=== PATIENT | female | born 2000 | race Caucasian/White ===

== ENCOUNTER 2021-07-01 17:19 | Emergency (ER) ==
[~2021-07-01] VITALS: Ht 165.1 cm; Wt 88.5 kg
[2021-07-01 21:08] VITALS: BP 127/77
== END 2021-07-01 21:33 | disposition left against medical advice (07) ==
LOC: M ED 17:19
DX: Z53.21 Procedure and treatment not carried out due to patient leaving prior to being seen by health care provider (principal)

== ENCOUNTER 2021-10-21 11:16 | Emergency (ER) | payer OTHER ==
[~2021-10-21] VITALS: Ht 165.1 cm; Wt 84.5 kg
[2021-10-21 16:47] LABS: BASO % 0.3 % (0.0-1.0); EOS % 0.3 % (0.0-3.0); HEMATOCRIT 37.9 % (36.0-47.0); HEMOGLOBIN 12.6 g/dl (12.0-15.5); LYMPH # 1.9 10^3/uL (1.5-5.0); LYMPH % 15.7 % (24.0-44.0); MEAN CORPUSCULAR HEMOGLOBIN 30.7 pg (27.0-33.0); MEAN CORPUSCULAR HGB CONC 33.2 g/dl (32.0-36.5); MEAN CORPUSCULAR VOLUME 92.2 fl (80.0-96.0); MONO # 0.7 10^3/uL (0.0-0.8); MONO % 5.9 % (2.0-8.0); NEUTROPHILS # 9.1 10^3/uL (1.5-8.5); NEUTROPHILS % 76.5 % (36.0-66.0); PLATELET COUNT, AUTOMATED 119 10^3/uL (150-450); RED BLOOD COUNT 4.11 10^6/uL (4.00-5.40); WHITE BLOOD COUNT 11.9 10^3/uL (4.0-10.0)
[2021-10-21 16:53] LABS: FREE T4 0.88 NG/DL (0.78-1.33); THYROID STIMULATING HORMONE 0.956 uIU/ML (0.463-3.98)
[2021-10-21 16:57] LABS: CK-MB VALUE MASS < 1.0 NG/ML (<3.6); CPK CREATINE PHOSPHOKINASE 53 U/L (26-192); MB/CK RELATIVE INDEX 1.89 (< OR =4)
[2021-10-21 17:45] VITALS: BP 132/68
== END 2021-10-21 17:50 | disposition home or self-care (01) ==
LOC: M ED 11:16
DX: R55 Syncope and collapse (principal); Z3A.19 19 weeks gestation of pregnancy; Z88.1 Allergy status to other antibiotic agents

== ENCOUNTER → 2021-12-07 | Outpatient (CLI) | payer OTHER | LOC: M PLALAB 07:58 | PROVIDERS: ATTEND Obstetrics & Gynecology | DX: Z36.2 Encounter for other antenatal screening follow-up (principal); Z3A.26 26 weeks gestation of pregnancy ==

== ENCOUNTER → 2021-12-08 | Outpatient (CLI) | payer OTHER | LOC: M LAB 15:27 | PROVIDERS: ATTEND Internal Medicine Cardiovascular Disease | DX: R23.2 Flushing (principal); R06.02 Shortness of breath ==

== ENCOUNTER → 2021-12-08 | Outpatient (CLI) | payer OTHER | LOC: M CARPUL 14:16 | PROVIDERS: ATTEND Internal Medicine Cardiovascular Disease | DX: R55 Syncope and collapse (principal); Z36.2 Encounter for other antenatal screening follow-up; Z3A.26 26 weeks gestation of pregnancy ==

== ENCOUNTER 2022-01-03 12:46 | Outpatient (CLI) | payer OTHER ==
[~2022-01-03] VITALS: Ht 165.1 cm; Wt 90.8 kg
[2022-01-03] MEDS ORDERED: PRENTAB9 PO (12:56)
[2022-01-03 13:04] VITALS: BP 125/72
[2022-01-03] MEDS ORDERED: HOME MED LIST COMPLETE! XX SCH (13:10)
[2022-01-03 14:26] LABS: APPEARANCE, URINE MANUAL HAZY (CLEAR); BILIRUBIN, URINE MANUAL NEGATIVE (NEGATIVE); BLOOD URINE MANUAL NEGATIVE (NEGATIVE); COLOR, URINE MANUAL YELLOW (YELLOW); GLUCOSE, URINE (UA) MANUAL NEGATIVE (NEGATIVE); KETONE, URINE MANUAL NEGATIVE (NEGATIVE); LEUKOCYTE ESTERASE, URINE MAN POSITIVE (NEGATIVE); NITRITE, URINE MANUAL NEGATIVE (NEGATIVE); PROTEIN, URINE MANUAL NEGATIVE (NEGATIVE); UROBILINOGEN, URINE MANUAL NORMAL (NORMAL)
[2022-01-03 14:42] LABS: RBC, URINE 0-1 /hpf (0-3); WBC, URINE 15-20 /hpf (0-3)
[2022-01-03 14:43] LABS: BACTERIA, URINE MOD AMOUNT; HYALINE CAST, URINE NONE SEEN /lpf (0-1); MUCUS, URINE MOD AMOUNT (NEGATIVE); SQUAMOUS EPITHELIAL CELL URINE LARGE AMOUNT /hpf (SMALL AMT)
== END 2022-01-03 14:46 | disposition home or self-care (01) ==
LOC: M LDO 12:46
PROVIDERS: ATTEND Advanced Practice Midwife
DX: O26.853 Spotting complicating pregnancy, third trimester (principal); O26.893 Other specified pregnancy related conditions, third trimester; R10.30 Lower abdominal pain, unspecified; Z3A.29 29 weeks gestation of pregnancy
CPT/HCPCS: 59025; 81000; 87086; G0463

== ENCOUNTER → 2022-02-02 | Outpatient (CLI) | payer OTHER ==
[~2022-02-02] MED LIST: PRENTAB9 PO
[2022-02-02 18:50] LABS: HEMATOCRIT 34.3 % (36.0-47.0); HEMOGLOBIN 11.2 g/dl (12.0-15.5); MEAN CORPUSCULAR HEMOGLOBIN 30.4 pg (27.0-33.0); MEAN CORPUSCULAR HGB CONC 32.7 g/dl (32.0-36.5); PLATELET COUNT, AUTOMATED 118 10^3/uL (150-450); RED BLOOD COUNT 3.69 10^6/uL (4.00-5.40); WHITE BLOOD COUNT 12.4 10^3/uL (4.0-10.0)
[2022-02-02 20:35] LABS: HEPATITIS C VIRUS ABY INDEX < 0.0 INDEX (<0.8); HIV 1&2 SCREEN CENTAUR NEGATIVE (NEGATIVE)
[2022-02-03 10:47] LABS: GC DNA AMPLIFICATION NEGATIVE (NEGATIVE)
== END ==
LOC: M PLALAB 15:42
PROVIDERS: ATTEND Obstetrics & Gynecology
DX: Z34.02 Encounter for supervision of normal first pregnancy, second trimester (principal)

== ENCOUNTER → 2022-02-17 | Outpatient (REF) | payer OTHER | LOC: M SFHCWAGY 09:43 | PROVIDERS: ATTEND Obstetrics & Gynecology | DX: Z36.89 Encounter for other specified antenatal screening (principal); Z3A.36 36 weeks gestation of pregnancy ==

== ENCOUNTER → 2022-02-23 | Outpatient (CLI) | payer OTHER ==
[2022-02-23 10:40] LABS: HEMATOCRIT 37.6 % (36.0-47.0); HEMOGLOBIN 12.2 g/dl (12.0-15.5); MEAN CORPUSCULAR HEMOGLOBIN 29.7 pg (27.0-33.0); MEAN CORPUSCULAR HGB CONC 32.4 g/dl (32.0-36.5); MEAN CORPUSCULAR VOLUME 91.5 fl (80.0-96.0); PLATELET COUNT, AUTOMATED 125 10^3/uL (150-450); RED BLOOD COUNT 4.11 10^6/uL (4.00-5.40); WHITE BLOOD COUNT 11.2 10^3/uL (4.0-10.0)
== END ==
LOC: M PLALAB 08:33
PROVIDERS: ATTEND Obstetrics & Gynecology
DX: D69.6 Thrombocytopenia, unspecified (principal)

== ENCOUNTER 2022-03-19 19:54 | Inpatient (IN) | payer OTHER ==
[~2022-03-19] VITALS: Ht 165.1 cm; Wt 96.5 kg
[2022-03-19] VITALS (10 sets, daily range): BP systolic 102–145; BP diastolic 64–109
[2022-03-19] MEDS ORDERED: HOME MED LIST COMPLETE! XX SCH (20:15)
[2022-03-19] MEDS ORDERED: CARBOPROST TROMETHAMINE 250 MCG/ML AMP IM PRN (21:20)
[2022-03-19] MEDS ORDERED: OXYTOCIN DRIP 30 UNITS in IV 1 EA IV PRN (21:20)
[2022-03-19] MEDS ORDERED: TRANEXAMIC ACID INJection 1,000 MG in NS 100 ML IV PRN (21:20)
[2022-03-19] MEDS ORDERED: LIDOCAINE 1% MDV 20ML VIAL INFIL PRN (21:20)
[2022-03-19 21:56] LABS: HEMATOCRIT 38.6 % (36.0-47.0); HEMOGLOBIN 12.5 g/dl (12.0-15.5); MEAN CORPUSCULAR HEMOGLOBIN 29.1 pg (27.0-33.0); MEAN CORPUSCULAR HGB CONC 32.4 g/dl (32.0-36.5); MEAN CORPUSCULAR VOLUME 89.8 fl (80.0-96.0); PLATELET COUNT, AUTOMATED 155 10^3/uL (150-450); WHITE BLOOD COUNT 13.1 10^3/uL (4.0-10.0)
[2022-03-19 22:34] LABS: CREATININE,RANDOM URINE 60.9 MG/DL; TOTAL PROTEIN,RANDOM URINE 5.2 MG/DL (0.0-12.0)
[2022-03-19] MEDS: miSOPROStol 50MCG 1/2 TABLET PO SCH (22:46)
[2022-03-20] VITALS (20 sets, daily range): BP systolic 114–154; BP diastolic 57–93
[2022-03-20] MEDS: miSOPROStol 50MCG 1/2 TABLET PO SCH ×3 (03:00→12:38)
[2022-03-20 05:59] LABS: ALT/SGPT 10 U/L (12-78); BILIRUBIN,TOTAL 0.4 MG/DL (0.2-1.0); CREATININE FOR GFR 0.55 MG/DL (0.55-1.30); LDH LACTATE DEHYDROGENASE 167 U/L (84-246); URIC ACID 3.5 MG/DL (2.6-6.0)
[2022-03-20] MEDS ORDERED: PROMETHAZINE 25MG/ML 1ML VIAL IV ONE (13:00)
[2022-03-20] MEDS ORDERED: BUTORPHANOL 2 MG/ML INJ (J0595) IV ONE (13:00)
[2022-03-20] MEDS ORDERED: OXYTOCIN DRIP 30 UNITS in IV 1 EA IV SCH (16:30)
[2022-03-20] MEDS: LR 1,000 ML IV SCH ×2 (16:56→17:48)
[2022-03-20] MEDS ORDERED: FENTANYL 2MCG/ML ROPIVACAINE 0.2% IN 0.9% NACL 100ML IVBAG As Ordered ONE (17:29)
[2022-03-20] MEDS ORDERED: diphenhydrAMINE 50MG/ML VIAL (J1200) IV PRN (17:30)
[2022-03-20] MEDS ORDERED: ePHEDrine SULFATE 25 MG/5 ML(5MG/ML) SYRINGE IVP PRN (17:30)
[2022-03-20] MEDS ORDERED: LR 500 ML IV PRN (17:30)
[2022-03-20] MEDS ORDERED: ONDANSETRON 4MG 2ML VIAL IV PRN (17:30)
[2022-03-20] MEDS ORDERED: FENTANYL/ROPIVACAINE/NACL BAG 100 ML EPIDURAL SCH (17:30)
[2022-03-20] MEDS ORDERED: NALOXONE INJ 0.4MG/1ML VIAL (J2310 PER 1MG) IV PRN (17:30)
[2022-03-20] MEDS ORDERED: EPIDURAL/PCA KEYS XX PRN (17:30)
[2022-03-21] MEDS ORDERED: ACETAMINOPHEN TAB 650MG DOSE (2X325MG) PO PRN (03:50)
[2022-03-21] MEDS ORDERED: DOCUSATE SODIUM 100MG CAPSULE PO PRN (03:50)
[2022-03-21] MEDS ORDERED: MOM 30ML SUSPENSION UDC PO PRN (03:50)
[2022-03-21] MEDS ORDERED: DIBUCAINE 1% OINTMENT 30GM TOP PRN (03:50)
[2022-03-21] MEDS ORDERED: RHOGAM 300 MCG (1500 IU) INJ (J2790) IM SCH (03:50)
[2022-03-21] MEDS ORDERED: OXYTOCIN DRIP 30 UNITS in IV 1 EA IV SCH (03:50)
[2022-03-21] MEDS ORDERED: METHYLERGONOVINE MALEATE 0.2 MG TAB PO PRN (03:50)
[2022-03-21] MEDS ORDERED: LR 1,000 ML IV SCH (03:50)
[2022-03-21] MEDS ORDERED: ACETAMINOPHEN 500 MG TAB PO PRN (03:50)
[2022-03-21] MEDS ORDERED: IBUPROFEN 800 MG TAB PO PRN (03:50)
[2022-03-21] MEDS ORDERED: ANUSOL HC CREAM 30GM TOP PRN (03:50)
[2022-03-21] MEDS ORDERED: IBUPROFEN 600MG TAB PO PRN (03:50)
[2022-03-21 05:15] VITALS: BP 132/82
[2022-03-21] MEDS: PRENATAL VITAMINS CHEWABLE TABLET PO SCH (08:38)
[2022-03-21 18:00] VITALS: BP 120/76
[2022-03-22 05:50] VITALS: BP 97/62
[2022-03-22] MEDS ORDERED: INFLUENZA QUADRIVALENT PF VACCINE 0.5ML SYRINGE IM.IMMUN ONE (09:00)
[2022-03-22] MEDS: PRENATAL VITAMINS CHEWABLE TABLET PO SCH (09:46)
[2022-03-22] MEDS ORDERED: COLA100C5 PO (11:54)
[2022-03-22] MEDS ORDERED: IBUP-1022 PO (11:54)
[2022-03-22] MEDS ORDERED: ACET-683 PO (11:54)
[2022-03-23] MEDS ORDERED: MEASLES,MUMPS,RUBELLA VACCINE INJ (MMR-II) (90707) SC.IMMUN ONE (09:00)
== END 2022-03-22 14:57 | disposition home or self-care (01) | DRG 806 ==
LOC: M LDO 19:54 → M LDI 21:02 → M OBS 03-21 05:12 → UNDODISIN 03-22 11:57
PROVIDERS: ADMIT Obstetrics & Gynecology; ATTEND Obstetrics & Gynecology
PROC: 3E0P7GC Introduction of Other Therapeutic Substance into Female Reproductive, Via Natural or Artificial Opening (ICD-10-PCS; 2022-03-19)
PROC: 10907ZC Drainage of Amniotic Fluid, Therapeutic from Products of Conception, Via Natural or Artificial Opening (ICD-10-PCS; 2022-03-20)
PROC: 10E0XZZ Delivery of Products of Conception, External Approach (ICD-10-PCS; principal; 2022-03-21)
PROC: 0KQM0ZZ Repair Perineum Muscle, Open Approach (ICD-10-PCS; 2022-03-21)
DX: O13.2 Gestational [pregnancy-induced] hypertension without significant proteinuria, second trimester (principal); Z37.0 Single live birth; O99.12 Other diseases of the blood and blood-forming organs and certain disorders involving the immune mechanism complicating childbirth; D69.6 Thrombocytopenia, unspecified; Z88.0 Allergy status to penicillin; Z88.1 Allergy status to other antibiotic agents; Z3A.40 40 weeks gestation of pregnancy; O70.1 Second degree perineal laceration during delivery